=== PATIENT | male | born 1945 | race Caucasian/White ===

== ENCOUNTER 2017-03-08 02:11 | Emergency (ER) | payer MEDICARE, OTHER ==
[~2017-03-08] VITALS: Ht 167.6 cm; Wt 62.6 kg
--- NOTE | ~2017-03-08 | CT4 ---
[facility] A Service of [facility] RADIOLOGY TEXT RESULTS PATIENT: KAILEY FAY LOCATION: [facility] : 49 UNIT #: [id number] AGE: [address]: ROLF RODRIGUEZ APRN SEX: M ORDER DR: [id number] [facility]. [place], [place] [address] [id number] MR#: [id number] Acc #: [id number] NAME: KAILEY FAY : 1945 SEX: M STUDY DATE/TIME: 03/08/2017 4:15 UNIT: [facility] ROOM: STUDY DESCRIPTION: CT Abd and Pelv Wo Cont Attending Physician: Rolf Rodriguez Aprn Ordering Physician: Rolf Rodriguez Aprn Primary Care Physician: Primary Care Physician No MEDICAL IMAGING REPORT This report is preliminary unless electronic signature is present EXAM CT abdomen and pelvis, noncontrast kidney stone protocol, 03/08/2017 HISTORY 71-year-old male in the ED complaining of 5-day history of right-side abdomen pain. Difficulty urinating. History of kidney stones. TECHNIQUE CT examination of the abdomen and pelvis without oral or IV contrast using kidney stone protocol. This CT examination was performed with one or more of the following radiation dose reduction techniques: automatic exposure control, adjustment of mA and/or kV according to patient size, and iterative reconstruction. FINDINGS ABDOMEN: There is a 7 mm obstructing calculus in the right distal ureter at the UVJ, partially protruding into the urinary bladder. This causes [id number] right side hydronephrosis. Two or three small nonobstructing bilateral renal calculi measuring between 2 and 6 mm. Probable small cyst in the lower pole left kidney, incompletely evaluated without IV contrast. Liver, pancreas and spleen are normal in size and appearance. No bile duct dilatation. Normal-caliber abdominal aorta. Large volume stool throughout portions of the colon. Small bowel and colon are otherwise unremarkable. PELVIS: Mild prostate enlargement. Rectum is negative. Limited lung base images show no active disease in the lower chest. IMPRESSION [facility] A Service of [facility] RADIOLOGY TEXT RESULTS PATIENT: KAILEY FAY LOCATION: [facility] : 49 UNIT #: [id number] AGE: [address]: ROLF RODRIGUEZ APRN SEX: M ORDER DR: 1. Obstructing right distal ureter calculus at the UVJ, partially protruding into the urinary bladder and causing [id number] right hydronephrosis. 2. Several small nonobstructing bilateral renal calculi. 3. Moderately large volume stool throughout portions of the colon. 4. Mild prostate enlargement. Dictated by... Armand Tatum M.D. THIS IS AN ELECTRONICALLY VERIFIED REPORT Armand Tatum M.D. at 03/08/2017 9:59 PM BRENDA/roseann TD: 03/08/2017 07:32 JOB #: [id number] MEDICAL IMAGING REPORT Page 1 of 1 COPY
[2017-03-08 02:59] LABS: BASOPHIL# 0.1 X10e3 (0-0.3); BASOPHIL% 0.4 % (0-2.5); DIFF IND NO; EOSINOPHIL% 0.3 % (0.0-7.0); HEMATOCRIT 40.8 % (38.0-50.0); HEMOGLOBIN 13.6 gm/dL (13.0-16.0); LYMPHOCYTE# 1.2 X10e3 (1.0-3.5); LYMPHOCYTE% 8.7 % (17.0-45.0); MEAN CELL VOLUME 90.8 FL (83-96); MEAN CORPUSCULAR HEMOGLOBIN 30.3 PG (28-34); MEAN CORPUSCULAR HGB CONC 33.4 g/dL (30-36); MEAN PLATELET VOLUME 6.8 FL (6.5-11.5); MONOCYTE# 1.4 X10e3 (0-1.0); MONOCYTE% 10.2 % (3.0-12.0); NEUTROPHIL# 10.9 X10e3 (1.5-7.1); NEUTROPHIL% 80.4 % (40-75); PLATELET COUNT 272 X10e3 (140-420); RED CELL DISTRIBUTION WIDTH 12.6 % (11.0-15.5); WHITE BLOOD COUNT 13.5 X10e3 (4.0-10.5)
[2017-03-08 03:24] LABS: ALBUMIN SERUM 3.9 g/dL (3.5-5.0); BILIRUBIN, DIRECT 0.2 mg/dL (0.0-0.2); BILIRUBIN,INDIRECT 1.4 mg/dL (0.0-0.9); BILIRUBIN,TOTAL 1.6 mg/dL (0.2-2.0); BUN/CREATININE RATIO 16.42; CREATININE SERUM 1.4 mg/dL (0.6-1.4); GLOM FILT RATE Estimated 50.9 mL/min (>60); POTASSIUM 3.9 mmol/L (3.5-5.1)
[2017-03-08 05:09] LABS: URINE APPEARANCE CLEAR; URINE BILIRUBIN NEG (NEG); URINE BLOOD 2+ (NEG); URINE COLOR DK YELLOW; URINE GLUCOSE NEG (NEG); URINE KETONE 1+ (NEG); URINE LEUKOCYTE ESTERASE 1+ (NEG); URINE NITRATE NEG (NEG); URINE PROTEIN TRACE (NEG); URINE SPECIFIC GRAVITY 1.024 (1.003-1.035)
[2017-03-08 05:55] LABS: URINE CRYSTALS CALCIUM OXALATE /[HPF]
[2017-03-08 05:56] LABS: URINE MUCUS PRESENT
[2017-03-08 06:06] LABS: CULTURE INDICATED? YES; URINE BACTERIA AUWI 2+ (NEGATIVE)
== END 2017-03-08 07:25 | disposition home or self-care (01) ==
LOC: CED 02:11
PROVIDERS: Nurse Practitioner Family
DX: N13.2 Hydronephrosis with renal and ureteral calculous obstruction (principal); K59.00 Constipation, unspecified; N40.0 Benign prostatic hyperplasia without lower urinary tract symptoms; F32.9 Major depressive disorder, single episode, unspecified; Z79.899 Other long term (current) drug therapy
CPT/HCPCS: 36415; 74176; 80048; 80076; 81003; 85025; 87086; 96361; 96374; 96375; 99284; J1885; J2270; J2405